=== PATIENT | female | born 1975 | race Caucasian/White ===

== ENCOUNTER 2016-06-05 16:52 | Emergency (ER) | payer MEDICAID ==
[2016-06-05] MEDS ORDERED: ONDANSETRON 4 MG VIAL ONE (19:33)
[2016-06-05] MEDS ORDERED: ACETAMINOPHEN 325 MG TAB ONE (19:33)
[2016-06-05] MEDS ORDERED: SODIUM CHLORIDE 0.9% 1,000 ML ONE (19:34)
== END 2016-06-05 21:25 | disposition home or self-care (01) ==
LOC: ER 16:52
DX: J20.8 Acute bronchitis due to other specified organisms (principal); R11.2 Nausea with vomiting, unspecified
CPT/HCPCS: 36415; 71020; 80053; 83690; 85025; 87804; 96361; 96374

== ENCOUNTER 2016-06-06 21:40 | Emergency (ER) | payer MEDICAID ==
[2016-06-07] MEDS ORDERED: SODIUM CHLORIDE 0.9% 100 ML IV ONE (00:10)
[2016-06-07] MEDS ORDERED: PROMETHAZINE 25 MG/ML VIAL ONE (00:10)
[2016-06-07] MEDS ORDERED: SODIUM CHLORIDE 0.9% 1,000 ML ONE (00:10)
[2016-06-07] MEDS ORDERED: KCL CR 20 MEQ TAB PO ONE (01:34)
== END 2016-06-07 02:40 | disposition home or self-care (01) ==
LOC: ER 21:40
DX: R11.2 Nausea with vomiting, unspecified (principal); E86.0 Dehydration; E87.6 Hypokalemia
CPT/HCPCS: 36415; 80047; 81001; 85014; 87077; 87088; 87186; 96361; 96365